=== PATIENT | male | born 1935 | race Two or more races ===

== ENCOUNTER 2017-02-27 07:27 | Outpatient (CLI) | payer OTHER | END 2017-02-27 07:37 | disposition home or self-care (01) | LOC: LAB 07:27 | DX: C61 Malignant neoplasm of prostate (principal) ==

== ENCOUNTER 2017-03-07 07:28 | Outpatient (CLI) | payer OTHER | END 2017-03-07 07:35 | disposition home or self-care (01) | LOC: TOM 07:28 | DX: N39.41 Urge incontinence (principal); C61 Malignant neoplasm of prostate ==

== ENCOUNTER 2017-03-08 09:31 | Outpatient (CLI) | payer OTHER | END 2017-03-08 09:39 | disposition home or self-care (01) | LOC: NUCLEAR 09:31 | DX: N39.41 Urge incontinence (principal); C61 Malignant neoplasm of prostate | CPT/HCPCS: 78306; 78320; A9503 ==

== ENCOUNTER 2017-03-15 07:43 | Outpatient (CLI) | payer OTHER | END 2017-03-15 07:50 | disposition home or self-care (01) | LOC: LAB 07:43 | DX: N18.3 Chronic kidney disease, stage 3 (moderate) (principal); R80.8 Other proteinuria ==

== ENCOUNTER 2017-03-28 08:49 | Outpatient (CLI) | payer OTHER | END 2017-03-28 08:59 | disposition home or self-care (01) | LOC: LAB 08:49 | DX: E11.65 Type 2 diabetes mellitus with hyperglycemia (principal); D68.8 Other specified coagulation defects; D64.89 Other specified anemias; E03.8 Other specified hypothyroidism; E78.2 Mixed hyperlipidemia; N40.1 Benign prostatic hyperplasia with lower urinary tract symptoms ==

== ENCOUNTER 2017-04-04 07:21 | Outpatient (CLI) | payer OTHER | END 2017-04-04 08:10 | disposition home or self-care (01) | LOC: LAB 07:21 | DX: N18.3 Chronic kidney disease, stage 3 (moderate) (principal); E11.21 Type 2 diabetes mellitus with diabetic nephropathy; D63.1 Anemia in chronic kidney disease; N30.00 Acute cystitis without hematuria; E78.4 Other hyperlipidemia; E03.8 Other specified hypothyroidism ==

== ENCOUNTER 2017-04-05 06:40 | Outpatient (CLI) | payer OTHER | END 2017-04-05 07:08 | disposition home or self-care (01) | LOC: LAB 06:40 | DX: N18.3 Chronic kidney disease, stage 3 (moderate) (principal); E11.21 Type 2 diabetes mellitus with diabetic nephropathy; D63.1 Anemia in chronic kidney disease; N30.00 Acute cystitis without hematuria; E78.4 Other hyperlipidemia; E03.8 Other specified hypothyroidism ==

== ENCOUNTER 2017-04-30 07:46 | Outpatient (CLI) | payer OTHER | END 2017-04-30 07:58 | disposition home or self-care (01) | LOC: LAB 07:46 | DX: N18.3 Chronic kidney disease, stage 3 (moderate) (principal); N30.00 Acute cystitis without hematuria; D63.1 Anemia in chronic kidney disease; E11.21 Type 2 diabetes mellitus with diabetic nephropathy; E78.5 Hyperlipidemia, unspecified; E03.8 Other specified hypothyroidism ==

== ENCOUNTER → 2017-05-16 | Outpatient (CLI) | payer OTHER | END | disposition home or self-care (01) | LOC: LAB 07:40 | DX: R80.8 Other proteinuria (principal); N18.2 Chronic kidney disease, stage 2 (mild) ==

== ENCOUNTER → 2017-05-24 | Outpatient (CLI) | payer OTHER | END | disposition home or self-care (01) | LOC: LAB 07:05 | DX: I11.9 Hypertensive heart disease without heart failure (principal); E78.2 Mixed hyperlipidemia; E04.8 Other specified nontoxic goiter ==

== ENCOUNTER 2017-06-27 07:30 | Outpatient (CLI) | payer OTHER | END 2017-06-27 07:42 | disposition home or self-care (01) | LOC: LAB 07:30 | DX: E11.65 Type 2 diabetes mellitus with hyperglycemia (principal); D68.8 Other specified coagulation defects; E78.2 Mixed hyperlipidemia ==

== ENCOUNTER 2017-06-27 09:10 | Outpatient (CLI) | payer OTHER | END 2017-06-27 09:19 | disposition home or self-care (01) | LOC: RAD 09:10 | DX: M50.30 Other cervical disc degeneration, unspecified cervical region (principal); Z98.1 Arthrodesis status ==

== ENCOUNTER 2017-06-29 07:10 | Outpatient (CLI) | payer OTHER | END 2017-06-29 08:27 | disposition home or self-care (01) | LOC: LAB 07:10 | DX: I11.9 Hypertensive heart disease without heart failure (principal) ==

== ENCOUNTER → 2017-07-03 07:52 | Outpatient (CLI) | payer OTHER | END | disposition home or self-care (01) | LOC: LAB 07:52 | DX: N18.3 Chronic kidney disease, stage 3 (moderate) (principal); E11.21 Type 2 diabetes mellitus with diabetic nephropathy; D63.1 Anemia in chronic kidney disease; N30.00 Acute cystitis without hematuria; E78.4 Other hyperlipidemia; E03.8 Other specified hypothyroidism ==

== ENCOUNTER 2017-07-09 06:38 | Outpatient (CLI) | payer OTHER | END 2017-07-09 06:59 | disposition home or self-care (01) | LOC: LAB 06:38 | DX: R80.8 Other proteinuria (principal); N18.1 Chronic kidney disease, stage 1; I12.9 Hypertensive chronic kidney disease with stage 1 through stage 4 chronic kidney disease, or unspecified chronic kidney disease ==

== ENCOUNTER → 2017-07-24 08:16 | Outpatient (CLI) | payer OTHER | END | disposition home or self-care (01) | LOC: LAB 08:16 | DX: E11.65 Type 2 diabetes mellitus with hyperglycemia (principal); E11.21 Type 2 diabetes mellitus with diabetic nephropathy; N39.0 Urinary tract infection, site not specified; E78.2 Mixed hyperlipidemia ==

== ENCOUNTER 2017-07-26 07:15 | Outpatient (CLI) | payer OTHER | END 2017-07-26 07:51 | disposition home or self-care (01) | LOC: LAB 07:15 | DX: D68.8 Other specified coagulation defects (principal); N39.0 Urinary tract infection, site not specified; Z12.11 Encounter for screening for malignant neoplasm of colon; E11.65 Type 2 diabetes mellitus with hyperglycemia; E11.21 Type 2 diabetes mellitus with diabetic nephropathy; E11.649 Type 2 diabetes mellitus with hypoglycemia without coma ==

== ENCOUNTER 2017-08-01 19:04 | Emergency (ER) | payer OTHER ==
[~2017-08-01] VITALS: Ht 160 cm; Wt 68.0 kg
== END 2017-08-01 20:54 | disposition home or self-care (01) ==
LOC: ER 19:04
DX: R63.1 Polydipsia (principal)

== ENCOUNTER 2017-08-16 06:40 | Outpatient (CLI) | payer OTHER | END 2017-08-16 06:47 | disposition home or self-care (01) | LOC: LAB 06:40 | DX: R80.8 Other proteinuria (principal); N18.3 Chronic kidney disease, stage 3 (moderate) ==

== ENCOUNTER 2017-09-21 07:43 | Outpatient (CLI) | payer OTHER | END 2017-09-21 07:49 | disposition home or self-care (01) | LOC: LAB 07:43 | DX: R80.8 Other proteinuria (principal); I12.9 Hypertensive chronic kidney disease with stage 1 through stage 4 chronic kidney disease, or unspecified chronic kidney disease ==

== ENCOUNTER 2017-10-16 07:16 | Outpatient (CLI) | payer OTHER | END 2017-10-16 07:30 | disposition home or self-care (01) | LOC: LAB 07:16 | DX: N18.3 Chronic kidney disease, stage 3 (moderate) (principal); E11.21 Type 2 diabetes mellitus with diabetic nephropathy; D63.1 Anemia in chronic kidney disease; R39.0 Extravasation of urine; E78.4 Other hyperlipidemia; E03.8 Other specified hypothyroidism ==

== ENCOUNTER 2017-10-17 07:28 | Outpatient (CLI) | payer OTHER | END 2017-10-17 09:04 | disposition home or self-care (01) | LOC: LAB 07:28 | DX: N18.3 Chronic kidney disease, stage 3 (moderate) (principal); E11.21 Type 2 diabetes mellitus with diabetic nephropathy; D63.1 Anemia in chronic kidney disease; R39.0 Extravasation of urine; E78.4 Other hyperlipidemia; E03.8 Other specified hypothyroidism ==

== ENCOUNTER 2017-11-06 06:59 | Outpatient (CLI) | payer OTHER | END 2017-11-06 07:09 | disposition home or self-care (01) | LOC: LAB 06:59 | DX: C61 Malignant neoplasm of prostate (principal) ==

== ENCOUNTER 2017-11-19 08:01 | Outpatient (CLI) | payer OTHER | END 2017-11-19 08:10 | disposition home or self-care (01) | LOC: RAD 08:01 | DX: M84.359A Stress fracture, hip, unspecified, initial encounter for fracture (principal) ==

== ENCOUNTER 2017-12-23 07:53 | Outpatient (CLI) | payer OTHER | END 2017-12-23 15:00 | disposition home or self-care (01) | LOC: LAB 07:53 | DX: R80.8 Other proteinuria (principal); N18.3 Chronic kidney disease, stage 3 (moderate); E78.2 Mixed hyperlipidemia ==

== ENCOUNTER 2018-01-29 07:14 | Outpatient (CLI) | payer OTHER | END 2018-01-29 07:20 | disposition home or self-care (01) | LOC: LAB 07:14 | DX: E11.22 Type 2 diabetes mellitus with diabetic chronic kidney disease (principal); N18.3 Chronic kidney disease, stage 3 (moderate); E11.21 Type 2 diabetes mellitus with diabetic nephropathy; D63.1 Anemia in chronic kidney disease; N30.00 Acute cystitis without hematuria; E78.49 Other hyperlipidemia; E03.8 Other specified hypothyroidism ==

== ENCOUNTER 2018-01-31 08:25 | Outpatient (CLI) | payer OTHER | END 2018-01-31 08:35 | disposition home or self-care (01) | LOC: LAB 08:25 | DX: N18.3 Chronic kidney disease, stage 3 (moderate) (principal); E11.21 Type 2 diabetes mellitus with diabetic nephropathy; D63.1 Anemia in chronic kidney disease; N30.00 Acute cystitis without hematuria; E78.49 Other hyperlipidemia; E03.8 Other specified hypothyroidism ==

== ENCOUNTER → 2018-03-04 06:54 | Outpatient (CLI) | payer OTHER | END | disposition home or self-care (01) | LOC: LAB 06:54 | DX: N39.0 Urinary tract infection, site not specified (principal); E11.21 Type 2 diabetes mellitus with diabetic nephropathy; E03.8 Other specified hypothyroidism; E78.2 Mixed hyperlipidemia; D64.89 Other specified anemias ==

== ENCOUNTER 2018-03-25 07:54 | Outpatient (CLI) | payer OTHER | END 2018-03-25 07:59 | disposition home or self-care (01) | LOC: LAB 07:54 | DX: R80.8 Other proteinuria (principal); N18.2 Chronic kidney disease, stage 2 (mild); I12.9 Hypertensive chronic kidney disease with stage 1 through stage 4 chronic kidney disease, or unspecified chronic kidney disease ==

== ENCOUNTER 2018-03-26 06:45 | Outpatient (CLI) | payer OTHER | END 2018-03-26 06:50 | disposition home or self-care (01) | LOC: LAB 06:45 | DX: E78.2 Mixed hyperlipidemia (principal); E11.21 Type 2 diabetes mellitus with diabetic nephropathy; D64.89 Other specified anemias; N39.0 Urinary tract infection, site not specified ==

== ENCOUNTER → 2018-04-15 06:33 | Outpatient (CLI) | payer OTHER | END | disposition home or self-care (01) | LOC: LAB 06:33 | DX: N18.3 Chronic kidney disease, stage 3 (moderate) (principal); E11.21 Type 2 diabetes mellitus with diabetic nephropathy; D63.1 Anemia in chronic kidney disease; N30.00 Acute cystitis without hematuria; E78.49 Other hyperlipidemia; E03.8 Other specified hypothyroidism ==

== ENCOUNTER 2018-04-24 10:18 | Outpatient (CLI) | payer OTHER | END 2018-04-24 10:30 | disposition home or self-care (01) | LOC: RAD 10:18 | DX: M20.61 Acquired deformities of toe(s), unspecified, right foot (principal); M20.62 Acquired deformities of toe(s), unspecified, left foot ==

== ENCOUNTER → 2018-05-15 | Outpatient (CLI) | payer OTHER | END | disposition home or self-care (01) | LOC: RAD 501 08:31 | DX: H25.011 Cortical age-related cataract, right eye (principal); Z98.41 Cataract extraction status, right eye ==

== ENCOUNTER → 2018-06-03 07:01 | Outpatient (CLI) | payer OTHER | END | disposition home or self-care (01) | LOC: LAB 07:01 | DX: E11.65 Type 2 diabetes mellitus with hyperglycemia (principal); D68.8 Other specified coagulation defects; E78.2 Mixed hyperlipidemia; E03.8 Other specified hypothyroidism; D64.89 Other specified anemias; N40.0 Benign prostatic hyperplasia without lower urinary tract symptoms ==

== ENCOUNTER 2018-07-16 07:16 | Outpatient (CLI) | payer OTHER | END 2018-07-16 07:23 | disposition home or self-care (01) | LOC: LAB 07:16 | DX: E03.8 Other specified hypothyroidism (principal); E78.49 Other hyperlipidemia; E11.21 Type 2 diabetes mellitus with diabetic nephropathy; N18.3 Chronic kidney disease, stage 3 (moderate); D63.1 Anemia in chronic kidney disease ==

== ENCOUNTER 2018-07-23 06:39 | Outpatient (CLI) | payer OTHER | END 2018-07-23 06:48 | disposition home or self-care (01) | LOC: LAB 06:39 | DX: E78.2 Mixed hyperlipidemia (principal); K80.80 Other cholelithiasis without obstruction; N18.3 Chronic kidney disease, stage 3 (moderate) ==

== ENCOUNTER 2018-07-28 10:04 | Outpatient (CLI) | payer OTHER | END 2018-07-28 10:10 | disposition home or self-care (01) | LOC: RAD 10:04 | DX: M16.0 Bilateral primary osteoarthritis of hip (principal) ==

== ENCOUNTER → 2018-08-04 08:39 | Outpatient (CLI) | payer OTHER | END | disposition home or self-care (01) | LOC: LAB 08:39 | DX: R10.84 Generalized abdominal pain (principal) ==

== ENCOUNTER 2018-08-04 09:13 | Outpatient (CLI) | payer OTHER | END 2018-08-04 09:19 | disposition home or self-care (01) | LOC: SONOGRAMA 09:13 | DX: R10.84 Generalized abdominal pain (principal) ==

== ENCOUNTER → 2018-08-09 07:19 | Outpatient (CLI) | payer OTHER | END | disposition home or self-care (01) | LOC: LAB 07:19 | DX: C61 Malignant neoplasm of prostate (principal) ==

== ENCOUNTER 2018-09-29 09:36 | Emergency (ER) | payer OTHER ==
[~2018-09-29] VITALS: Ht 162.6 cm; Wt 68.0 kg
[2018-09-29] MEDS ORDERED: TYLENOL ARTHRI650 MG PO (10:21)
== END 2018-09-29 10:41 | disposition home or self-care (01) ==
LOC: ER 09:36
DX: M77.32 Calcaneal spur, left foot (principal)

== ENCOUNTER 2018-09-30 06:24 | Emergency (ER) | payer OTHER ==
[~2018-09-30] VITALS: Ht 160 cm; Wt 69.4 kg
[~2018-09-30 06:24] MED LIST: TYLENOL ARTHRI650 MG PO
== END 2018-09-30 08:59 | disposition home or self-care (01) ==
LOC: ER 06:24
DX: M77.32 Calcaneal spur, left foot (principal)

== ENCOUNTER 2018-10-02 08:38 | Outpatient (CLI) | payer OTHER | END 2018-10-02 08:47 | disposition home or self-care (01) | LOC: LAB 08:38 | DX: R53.83 Other fatigue (principal); M05.9 Rheumatoid arthritis with rheumatoid factor, unspecified ==

== ENCOUNTER 2018-10-07 07:00 | Outpatient (CLI) | payer OTHER | END 2018-10-07 07:07 | disposition home or self-care (01) | LOC: LAB 07:00 | DX: E78.2 Mixed hyperlipidemia (principal); E11.65 Type 2 diabetes mellitus with hyperglycemia; D64.89 Other specified anemias; N39.0 Urinary tract infection, site not specified; D68.8 Other specified coagulation defects; E03.8 Other specified hypothyroidism ==

== ENCOUNTER 2018-10-07 14:03 | Outpatient (CLI) | payer OTHER | END 2018-10-07 14:07 | disposition home or self-care (01) | LOC: MRI 14:03 | DX: M76.822 Posterior tibial tendinitis, left leg (principal) | CPT/HCPCS: 73718 ==

== ENCOUNTER 2018-11-18 06:24 | Outpatient (CLI) | payer OTHER | END 2018-11-18 06:37 | disposition home or self-care (01) | LOC: LAB 06:24 | DX: N18.3 Chronic kidney disease, stage 3 (moderate) (principal); I12.9 Hypertensive chronic kidney disease with stage 1 through stage 4 chronic kidney disease, or unspecified chronic kidney disease; R80.8 Other proteinuria ==

== ENCOUNTER 2018-11-24 06:49 | Outpatient (CLI) | payer OTHER | END 2018-11-24 15:00 | disposition home or self-care (01) | LOC: LAB 06:49 | DX: E11.21 Type 2 diabetes mellitus with diabetic nephropathy (principal); D63.1 Anemia in chronic kidney disease; N18.3 Chronic kidney disease, stage 3 (moderate); N30.00 Acute cystitis without hematuria; E78.4 Other hyperlipidemia; E03.8 Other specified hypothyroidism ==

== ENCOUNTER 2018-11-25 06:38 | Outpatient (CLI) | payer OTHER | END 2018-11-25 13:41 | disposition home or self-care (01) | LOC: LAB 06:38 | DX: N18.3 Chronic kidney disease, stage 3 (moderate) (principal); E11.21 Type 2 diabetes mellitus with diabetic nephropathy; D63.1 Anemia in chronic kidney disease; N30.00 Acute cystitis without hematuria; E03.8 Other specified hypothyroidism; E78.49 Other hyperlipidemia ==

== ENCOUNTER 2019-03-03 06:40 | Outpatient (CLI) | payer OTHER | END 2019-03-03 07:10 | disposition home or self-care (01) | LOC: LAB 06:40 | DX: E78.2 Mixed hyperlipidemia (principal); N40.0 Benign prostatic hyperplasia without lower urinary tract symptoms; E11.65 Type 2 diabetes mellitus with hyperglycemia; D64.89 Other specified anemias ==

== ENCOUNTER 2019-03-06 06:48 | Outpatient (CLI) | payer OTHER | END 2019-03-06 07:00 | disposition home or self-care (01) | LOC: LAB 06:48 | DX: N18.3 Chronic kidney disease, stage 3 (moderate) (principal); E11.21 Type 2 diabetes mellitus with diabetic nephropathy; D63.1 Anemia in chronic kidney disease; N30.00 Acute cystitis without hematuria; E78.49 Other hyperlipidemia; E03.8 Other specified hypothyroidism ==

== ENCOUNTER 2019-04-01 06:31 | Outpatient (CLI) | payer OTHER | END 2019-04-01 06:42 | disposition home or self-care (01) | LOC: LAB 06:31 | DX: G45.8 Other transient cerebral ischemic attacks and related syndromes (principal); I73.89 Other specified peripheral vascular diseases; I11.9 Hypertensive heart disease without heart failure ==

== ENCOUNTER 2019-04-03 06:17 | Outpatient (CLI) | payer OTHER | END 2019-04-03 06:30 | disposition home or self-care (01) | LOC: LAB 06:17 | DX: G45.8 Other transient cerebral ischemic attacks and related syndromes (principal); N03.2 Chronic nephritic syndrome with diffuse membranous glomerulonephritis; I73.89 Other specified peripheral vascular diseases; I11.9 Hypertensive heart disease without heart failure ==

== ENCOUNTER → 2019-04-22 06:13 | Outpatient (CLI) | payer OTHER | END | disposition home or self-care (01) | LOC: LAB 06:13 | DX: N18.3 Chronic kidney disease, stage 3 (moderate) (principal); I12.9 Hypertensive chronic kidney disease with stage 1 through stage 4 chronic kidney disease, or unspecified chronic kidney disease; K80.80 Other cholelithiasis without obstruction ==

== ENCOUNTER 2019-05-05 11:18 | Emergency (ER) | payer OTHER ==
[~2019-05-05] VITALS: Ht 162.6 cm; Wt 69.9 kg
== END 2019-05-05 12:14 | disposition home or self-care (01) ==
LOC: ER 11:18
DX: J98.8 Other specified respiratory disorders (principal)

== ENCOUNTER 2019-05-28 06:10 | Outpatient (CLI) | payer OTHER | END 2019-05-28 06:19 | disposition home or self-care (01) | LOC: LAB 06:10 | DX: E78.2 Mixed hyperlipidemia (principal); D64.89 Other specified anemias; E11.21 Type 2 diabetes mellitus with diabetic nephropathy; N39.0 Urinary tract infection, site not specified; E11.65 Type 2 diabetes mellitus with hyperglycemia; Z12.11 Encounter for screening for malignant neoplasm of colon ==

== ENCOUNTER 2019-06-25 06:10 | Outpatient (CLI) | payer OTHER | END 2019-06-25 06:15 | disposition home or self-care (01) | LOC: LAB 06:10 | DX: N11.8 Other chronic tubulo-interstitial nephritis (principal); E11.21 Type 2 diabetes mellitus with diabetic nephropathy; D63.1 Anemia in chronic kidney disease; N30.00 Acute cystitis without hematuria; E03.8 Other specified hypothyroidism ==

== ENCOUNTER 2019-08-25 06:18 | Outpatient (CLI) | payer OTHER | END 2019-08-25 06:22 | disposition home or self-care (01) | LOC: LAB 06:18 | DX: R80.8 Other proteinuria (principal); N18.3 Chronic kidney disease, stage 3 (moderate); I12.9 Hypertensive chronic kidney disease with stage 1 through stage 4 chronic kidney disease, or unspecified chronic kidney disease ==

== ENCOUNTER 2019-11-17 06:27 | Outpatient (CLI) | payer OTHER | END 2019-11-17 06:31 | disposition home or self-care (01) | LOC: LAB 06:27 | PROVIDERS: ATTEND Specialist/Technologist, Other Nephrology | DX: E11.21 Type 2 diabetes mellitus with diabetic nephropathy (principal); D63.1 Anemia in chronic kidney disease; N30.00 Acute cystitis without hematuria; E03.8 Other specified hypothyroidism ==

== ENCOUNTER 2019-11-19 06:28 | Outpatient (CLI) | payer OTHER | END 2019-11-19 15:00 | disposition home or self-care (01) | LOC: LAB 06:28 | PROVIDERS: ATTEND Specialist/Technologist, Other Nephrology | DX: E11.21 Type 2 diabetes mellitus with diabetic nephropathy (principal); D63.1 Anemia in chronic kidney disease; N30.00 Acute cystitis without hematuria; E03.8 Other specified hypothyroidism ==

== ENCOUNTER → 2019-12-14 | Outpatient (CLI) | payer OTHER | END | disposition home or self-care (01) | LOC: TOM 12-01 09:14 → MRI 11:00 | PROVIDERS: ATTEND Neurological Surgery | DX: M48.02 Spinal stenosis, cervical region (principal); G95.89 Other specified diseases of spinal cord; M43.22 Fusion of spine, cervical region; M54.2 Cervicalgia | CPT/HCPCS: 72141 ==

== ENCOUNTER → 2020-01-08 06:15 | Outpatient (CLI) | payer OTHER | END | disposition home or self-care (01) | LOC: LAB 06:15 | DX: R80.8 Other proteinuria (principal); N18.30 Chronic kidney disease, stage 3 unspecified; I12.9 Hypertensive chronic kidney disease with stage 1 through stage 4 chronic kidney disease, or unspecified chronic kidney disease ==

== ENCOUNTER 2020-04-04 06:10 | Outpatient (CLI) | payer OTHER | END 2020-04-04 06:11 | disposition home or self-care (01) | LOC: LAB 06:10 | PROVIDERS: ATTEND Specialist/Technologist, Other Nephrology | DX: E03.8 Other specified hypothyroidism (principal); N30.00 Acute cystitis without hematuria; E11.21 Type 2 diabetes mellitus with diabetic nephropathy; D63.1 Anemia in chronic kidney disease ==

== ENCOUNTER → 2020-06-02 12:05 | Outpatient (CLI) | payer OTHER | END | disposition home or self-care (01) | LOC: LAB 12:05 | PROVIDERS: ATTEND Specialist | DX: E11.65 Type 2 diabetes mellitus with hyperglycemia (principal); D64.9 Anemia, unspecified; E78.2 Mixed hyperlipidemia; N40.1 Benign prostatic hyperplasia with lower urinary tract symptoms; E11.21 Type 2 diabetes mellitus with diabetic nephropathy; Z12.11 Encounter for screening for malignant neoplasm of colon; N39.0 Urinary tract infection, site not specified; E03.9 Hypothyroidism, unspecified ==

== ENCOUNTER 2020-06-02 13:26 | Outpatient (CLI) | payer OTHER | END 2020-06-02 13:29 | disposition home or self-care (01) | LOC: RAD 13:26 | PROVIDERS: ATTEND Specialist | DX: R07.89 Other chest pain (principal); I10 Essential (primary) hypertension; J45.998 Other asthma ==

== ENCOUNTER 2020-06-03 07:08 | Outpatient (CLI) | payer OTHER | END 2020-06-03 07:11 | disposition home or self-care (01) | LOC: LAB 07:08 | PROVIDERS: ATTEND Specialist | DX: N39.0 Urinary tract infection, site not specified (principal); D64.9 Anemia, unspecified; E78.2 Mixed hyperlipidemia; N42.9 Disorder of prostate, unspecified; E11.21 Type 2 diabetes mellitus with diabetic nephropathy; Z12.11 Encounter for screening for malignant neoplasm of colon ==

== ENCOUNTER → 2020-06-22 06:08 | Outpatient (CLI) | payer OTHER | END | disposition home or self-care (01) | LOC: LAB 06:08 → EDBD 06:08 | PROVIDERS: ATTEND Internal Medicine Cardiovascular Disease | DX: I11.9 Hypertensive heart disease without heart failure (principal); E78.1 Pure hyperglyceridemia ==

== ENCOUNTER 2020-06-28 07:26 | Outpatient (CLI) | payer OTHER | END 2020-06-28 07:28 | disposition home or self-care (01) | LOC: NUCLEAR 07:26 | PROVIDERS: ATTEND Internal Medicine Cardiovascular Disease | DX: R07.89 Other chest pain (principal) | CPT/HCPCS: 78452; 93017; A9500; J0153 ==

== ENCOUNTER 2020-06-29 12:52 | Outpatient (CLI) | payer OTHER | END 2020-06-29 13:00 | disposition home or self-care (01) | LOC: RAD 12:52 | PROVIDERS: ATTEND Internal Medicine Cardiovascular Disease | DX: M25.511 Pain in right shoulder (principal); M25.512 Pain in left shoulder ==

== ENCOUNTER → 2020-07-11 06:17 | Outpatient (CLI) | payer OTHER | END | disposition home or self-care (01) | LOC: LAB 06:17 | PROVIDERS: ATTEND Specialist/Technologist, Other Nephrology | DX: N11.8 Other chronic tubulo-interstitial nephritis (principal); E11.21 Type 2 diabetes mellitus with diabetic nephropathy; D63.1 Anemia in chronic kidney disease; N30.00 Acute cystitis without hematuria; E72.89 Other specified disorders of amino-acid metabolism; E03.8 Other specified hypothyroidism ==

== ENCOUNTER 2020-07-18 06:25 | Outpatient (CLI) | payer OTHER | END 2020-07-18 06:31 | disposition home or self-care (01) | LOC: LAB 06:25 | DX: R80.8 Other proteinuria (principal); N18.30 Chronic kidney disease, stage 3 unspecified; I12.9 Hypertensive chronic kidney disease with stage 1 through stage 4 chronic kidney disease, or unspecified chronic kidney disease ==

== ENCOUNTER → 2020-10-05 07:49 | Outpatient (CLI) | payer OTHER | END | disposition home or self-care (01) | LOC: EDBD 07:49 → LAB 07:49 → RAD 07:49 | PROVIDERS: ATTEND Internal Medicine Cardiovascular Disease | DX: E11.65 Type 2 diabetes mellitus with hyperglycemia (principal); D68.8 Other specified coagulation defects; C61 Malignant neoplasm of prostate; E21.0 Primary hyperparathyroidism; E78.2 Mixed hyperlipidemia; E03.1 Congenital hypothyroidism without goiter; N05.1 Unspecified nephritic syndrome with focal and segmental glomerular lesions; E11.21 Type 2 diabetes mellitus with diabetic nephropathy; I11.9 Hypertensive heart disease without heart failure; E78.1 Pure hyperglyceridemia; M25.511 Pain in right shoulder ==

== ENCOUNTER 2020-10-18 08:15 | Outpatient (CLI) | payer OTHER | END 2020-10-18 08:16 | disposition home or self-care (01) | LOC: LAB 08:15 | DX: N18.32 Chronic kidney disease, stage 3b (principal); I12.9 Hypertensive chronic kidney disease with stage 1 through stage 4 chronic kidney disease, or unspecified chronic kidney disease; R80.8 Other proteinuria; R31.29 Other microscopic hematuria ==

== ENCOUNTER 2020-11-13 05:59 | Emergency (ER) | payer OTHER ==
[~2020-11-13] VITALS: Ht 162.6 cm; Wt 68.0 kg
[2020-12-01] MEDS ORDERED: ADULT LOW DOSE81 M1 PO (09:50)
[2020-12-01] MEDS ORDERED: PLAVIX75 MG PO (09:50)
== END 2020-11-13 09:35 | disposition home or self-care (01) ==
LOC: ER 05:59
DX: M25.512 Pain in left shoulder (principal); M25.552 Pain in left hip

== ENCOUNTER 2020-11-21 10:30 | Outpatient (CLI) | payer OTHER ==
[2020-12-01] MEDS ORDERED: ADULT LOW DOSE81 M1 PO (09:50)
[2020-12-01] MEDS ORDERED: PLAVIX75 MG PO (09:50)
== END 2020-11-21 10:35 | disposition home or self-care (01) ==
LOC: MRI 10:30
PROVIDERS: ATTEND Orthopaedic Surgery
DX: M75.52 Bursitis of left shoulder (principal); M25.512 Pain in left shoulder; M75.122 Complete rotator cuff tear or rupture of left shoulder, not specified as traumatic
CPT/HCPCS: 73221

== ENCOUNTER 2020-11-30 10:02 | Outpatient (CLI) | payer OTHER ==
[2020-12-01] MEDS ORDERED: ADULT LOW DOSE81 M1 PO (09:50)
[2020-12-01] MEDS ORDERED: PLAVIX75 MG PO (09:50)
== END 2020-11-30 13:39 | disposition home or self-care (01) ==
LOC: LAB 10:02
PROVIDERS: ATTEND Specialist/Technologist, Other Nephrology
DX: N30.00 Acute cystitis without hematuria (principal); I12.9 Hypertensive chronic kidney disease with stage 1 through stage 4 chronic kidney disease, or unspecified chronic kidney disease; E78.49 Other hyperlipidemia; E03.8 Other specified hypothyroidism; D63.1 Anemia in chronic kidney disease; E11.21 Type 2 diabetes mellitus with diabetic nephropathy

== ENCOUNTER 2020-12-06 07:09 | Day surgery (SDC) | payer OTHER ==
[~2020-12-06 07:09] MED LIST changes: +ADULT LOW DOSE81 M1 PO; +PLAVIX75 MG PO
[2020-12-06] MEDS ORDERED: NABUMETONE500 MG PO (12:24)
[2020-12-06] MEDS ORDERED: PERCOCET 5-3251 EACH PO (12:24)
== END 2020-12-06 18:26 | disposition home or self-care (01) ==
LOC: CIR.AMB 07:09
PROVIDERS: ATTEND Orthopaedic Surgery
DX: M75.102 Unspecified rotator cuff tear or rupture of left shoulder, not specified as traumatic (principal); M75.22 Bicipital tendinitis, left shoulder; M66.822 Spontaneous rupture of other tendons, left upper arm; M19.212 Secondary osteoarthritis, left shoulder; Z20.822 Contact with and (suspected) exposure to COVID-19

== ENCOUNTER 2020-12-28 08:51 | Outpatient (CLI) | payer OTHER ==
[~2020-12-28 08:51] MED LIST changes: +NABUMETONE500 MG PO; +PERCOCET 5-3251 EACH PO
== END 2020-12-28 09:00 | disposition home or self-care (01) ==
LOC: RAD 08:51
PROVIDERS: ATTEND Orthopaedic Surgery
DX: S40.012A Contusion of left shoulder, initial encounter (principal); M25.552 Pain in left hip; S70.02XA Contusion of left hip, initial encounter

== ENCOUNTER → 2021-01-06 | Outpatient (CLI) | payer OTHER | END | disposition home or self-care (01) | LOC: RX STUDY 08:12 | PROVIDERS: ATTEND Otolaryngology Otology & Neurotology | DX: K22.89 Other specified disease of esophagus (principal); R13.14 Dysphagia, pharyngoesophageal phase ==

== ENCOUNTER 2021-01-17 08:13 | Outpatient (CLI) | payer OTHER | END 2021-01-17 08:15 | disposition home or self-care (01) | LOC: RAD 08:13 | PROVIDERS: ATTEND Internal Medicine Cardiovascular Disease | DX: M79.672 Pain in left foot (principal) ==

== ENCOUNTER 2021-01-23 07:53 | Outpatient (CLI) | payer OTHER | END 2021-01-23 08:03 | disposition home or self-care (01) | LOC: NUCLEAR 07:53 | PROVIDERS: ATTEND Internal Medicine Cardiovascular Disease | DX: I73.9 Peripheral vascular disease, unspecified (principal) ==

== ENCOUNTER → 2021-01-26 | Emergency (ER) | payer OTHER ==
[~2021-01-26] VITALS: Ht 162.6 cm; Wt 63.5 kg
== END | disposition home or self-care (01) ==
LOC: ER 10:40
DX: J06.9 Acute upper respiratory infection, unspecified (principal)

== ENCOUNTER 2021-03-06 11:57 | Outpatient (CLI) | payer OTHER | END 2021-03-06 12:01 | disposition home or self-care (01) | LOC: RAD 11:57 | PROVIDERS: ATTEND Physical Medicine & Rehabilitation | DX: M54.59 Other low back pain (principal) ==

== ENCOUNTER 2021-04-05 12:26 | Outpatient (CLI) | payer OTHER ==
[~2021-04-05 12:26] MED LIST changes: +DICLOFENAC POTA50 MG PO
== END 2021-04-05 12:27 | disposition home or self-care (01) ==
LOC: LAB 12:26
PROVIDERS: ATTEND Specialist
DX: E03.9 Hypothyroidism, unspecified (principal); E11.21 Type 2 diabetes mellitus with diabetic nephropathy; N39.9 Disorder of urinary system, unspecified; N40.1 Benign prostatic hyperplasia with lower urinary tract symptoms; D40.0 Neoplasm of uncertain behavior of prostate; E78.2 Mixed hyperlipidemia; E11.65 Type 2 diabetes mellitus with hyperglycemia; D64.9 Anemia, unspecified; N25.81 Secondary hyperparathyroidism of renal origin; N39.0 Urinary tract infection, site not specified

== ENCOUNTER 2021-04-27 06:13 | Outpatient (CLI) | payer OTHER ==
[2021-05-03] MEDS ORDERED: PLAVIX75 MG PO (13:14)
[2021-05-03] MEDS ORDERED: ADULT LOW DOSE81 M1 PO (13:14)
[2021-05-03] MEDS ORDERED: LIPITOR20 MG PO (13:15)
== END 2021-04-27 06:14 | disposition home or self-care (01) ==
LOC: LAB 06:13
PROVIDERS: ATTEND Orthopaedic Surgery
DX: D64.9 Anemia, unspecified (principal); A49.02 Methicillin resistant Staphylococcus aureus infection, unspecified site; E88.9 Metabolic disorder, unspecified; D68.8 Other specified coagulation defects; N39.0 Urinary tract infection, site not specified; I10 Essential (primary) hypertension; Z76.89 Persons encountering health services in other specified circumstances

== ENCOUNTER 2021-05-09 07:56 | Day surgery (SDC) | payer OTHER ==
[~2021-05-09 07:56] MED LIST changes: +LIPITOR20 MG PO
== END 2021-05-09 19:35 | disposition home or self-care (01) ==
LOC: CIR.AMB 07:56
PROVIDERS: ATTEND Orthopaedic Surgery
DX: M75.122 Complete rotator cuff tear or rupture of left shoulder, not specified as traumatic (principal); M19.012 Primary osteoarthritis, left shoulder; M75.22 Bicipital tendinitis, left shoulder; M25.812 Other specified joint disorders, left shoulder; I25.10 Atherosclerotic heart disease of native coronary artery without angina pectoris; Z95.5 Presence of coronary angioplasty implant and graft; I10 Essential (primary) hypertension; M19.90 Unspecified osteoarthritis, unspecified site; Z79.82 Long term (current) use of aspirin; Z79.02 Long term (current) use of antithrombotics/antiplatelets; Z20.822 Contact with and (suspected) exposure to COVID-19

== ENCOUNTER 2021-05-19 10:50 | Emergency (ER) | payer OTHER ==
[~2021-05-19] VITALS: Ht 162.6 cm; Wt 63.5 kg
[2021-05-19] MEDS ORDERED: METOPROLOL SUCC50 MG (11:14)
[2021-05-19] MEDS ORDERED: PRILOSEC OTC20 MG (11:15)
[2021-05-19] MEDS ORDERED: NITROGLYCERIN0.4 MG (11:15)
[2021-05-19] MEDS ORDERED: CELECOXIB200 MG (11:15)
== END 2021-05-19 19:51 | disposition home or self-care (01) ==
LOC: ER 10:50
DX: R10.13 Epigastric pain (principal); I10 Essential (primary) hypertension; Z20.822 Contact with and (suspected) exposure to COVID-19

== ENCOUNTER 2021-05-23 04:37 | Emergency (ER) | payer OTHER ==
[~2021-05-23] VITALS: Ht 162.6 cm; Wt 63.5 kg
[~2021-05-23 04:37] MED LIST changes: +CELECOXIB200 MG; +METOPROLOL SUCC50 MG; +NITROGLYCERIN0.4 MG; +PRILOSEC OTC20 MG
== END 2021-05-23 10:24 | disposition home or self-care (01) ==
LOC: ER 04:37
DX: R10.9 Unspecified abdominal pain (principal); K59.03 Drug induced constipation; M54.9 Dorsalgia, unspecified

== ENCOUNTER 2021-10-21 04:37 | Emergency (ER) | payer OTHER ==
[~2021-10-21] VITALS: Ht 165.1 cm; Wt 68.0 kg
== END 2021-10-21 13:56 | disposition home or self-care (01) ==
LOC: ER 04:37
DX: K59.00 Constipation, unspecified (principal); R10.84 Generalized abdominal pain; K57.90 Diverticulosis of intestine, part unspecified, without perforation or abscess without bleeding

== ENCOUNTER 2021-10-25 06:23 | Outpatient (CLI) | payer OTHER | END 2021-10-25 06:24 | disposition home or self-care (01) | LOC: LAB 06:23 | PROVIDERS: ATTEND Internal Medicine Cardiovascular Disease | DX: I11.9 Hypertensive heart disease without heart failure (principal); C11.9 Malignant neoplasm of nasopharynx, unspecified; I25.9 Chronic ischemic heart disease, unspecified; M45.9 Ankylosing spondylitis of unspecified sites in spine; I73.9 Peripheral vascular disease, unspecified; N03.2 Chronic nephritic syndrome with diffuse membranous glomerulonephritis ==

== ENCOUNTER 2021-11-04 09:10 | Emergency (ER) | payer OTHER ==
[~2021-11-04] VITALS: Ht 162.6 cm; Wt 63.5 kg
== END 2021-11-04 11:24 | disposition home or self-care (01) ==
LOC: ER 09:10
DX: J04.0 Acute laryngitis (principal)

== ENCOUNTER 2021-11-06 02:54 | Emergency (ER) | payer OTHER ==
[~2021-11-06] VITALS: Ht 162.6 cm; Wt 59.0 kg
== END 2021-11-06 09:22 | disposition left against medical advice (07) ==
LOC: ER 02:54
DX: R05.9 Cough, unspecified (principal); Z20.822 Contact with and (suspected) exposure to COVID-19; I10 Essential (primary) hypertension

== ENCOUNTER 2021-11-07 11:19 | Emergency (ER) | payer OTHER ==
[~2021-11-07] VITALS: Ht 162.6 cm; Wt 63.5 kg
== END 2021-11-07 16:36 | disposition home or self-care (01) ==
LOC: ER 11:19
DX: M54.2 Cervicalgia (principal); Z98.1 Arthrodesis status

== ENCOUNTER 2021-11-08 08:21 | Emergency (ER) | payer OTHER ==
[~2021-11-08] VITALS: Ht 162.6 cm; Wt 63.5 kg
== END 2021-11-08 14:21 | disposition home or self-care (01) ==
LOC: ER 08:21
DX: S49.91XA Unspecified injury of right shoulder and upper arm, initial encounter (principal); X58.XXXA Exposure to other specified factors, initial encounter; Y93.9 Activity, unspecified; Y92.9 Unspecified place or not applicable

== ENCOUNTER 2021-11-10 04:24 | Emergency (ER) | payer OTHER ==
[~2021-11-10] VITALS: Ht 162.6 cm; Wt 63.5 kg
== END 2021-11-10 12:06 | disposition home or self-care (01) ==
LOC: ER 04:24
DX: M47.892 Other spondylosis, cervical region (principal); H92.02 Otalgia, left ear; I10 Essential (primary) hypertension

== ENCOUNTER 2021-11-21 10:55 | Outpatient (CLI) | payer OTHER | END 2021-11-21 15:37 | disposition home or self-care (01) | LOC: LAB 10:55 | PROVIDERS: ATTEND Specialist | DX: N39.9 Disorder of urinary system, unspecified (principal); E03.8 Other specified hypothyroidism; Z13.220 Encounter for screening for lipoid disorders; E11.69 Type 2 diabetes mellitus with other specified complication; E11.21 Type 2 diabetes mellitus with diabetic nephropathy; Z12.5 Encounter for screening for malignant neoplasm of prostate; R19.5 Other fecal abnormalities; D64.89 Other specified anemias ==

== ENCOUNTER 2021-11-24 12:14 | Emergency (ER) | payer OTHER ==
[~2021-11-24] VITALS: Ht 167.6 cm; Wt 54.4 kg
== END 2021-11-24 14:50 | disposition left against medical advice (07) ==
LOC: ER 12:14
DX: Z53.21 Procedure and treatment not carried out due to patient leaving prior to being seen by health care provider (principal)

== ENCOUNTER 2021-11-25 06:22 | Emergency (ER) | payer OTHER ==
[~2021-11-25] VITALS: Ht 162.6 cm; Wt 63.5 kg
== END 2021-11-25 09:41 | disposition left against medical advice (07) ==
LOC: ER 06:22
DX: S79.911A Unspecified injury of right hip, initial encounter (principal); W19.XXXA Unspecified fall, initial encounter; Y93.9 Activity, unspecified; Y92.9 Unspecified place or not applicable

== ENCOUNTER 2021-11-26 05:10 | Emergency (ER) | payer OTHER ==
[~2021-11-26] VITALS: Ht 162.6 cm; Wt 63.5 kg
== END 2021-11-26 06:14 | disposition home or self-care (01) ==
LOC: ER 05:10
DX: M25.551 Pain in right hip (principal); I10 Essential (primary) hypertension

== ENCOUNTER 2021-11-28 11:03 | Emergency (ER) | payer OTHER ==
[~2021-11-28] VITALS: Ht 162.6 cm; Wt 63.5 kg
== END 2021-11-28 13:15 | disposition home or self-care (01) ==
LOC: ER 11:03
DX: M79.604 Pain in right leg (principal)

== ENCOUNTER 2021-12-06 06:20 | Outpatient (CLI) | payer OTHER | END 2021-12-06 06:21 | disposition home or self-care (01) | LOC: LAB 06:20 | PROVIDERS: ATTEND Specialist | DX: N39.9 Disorder of urinary system, unspecified (principal); E11.69 Type 2 diabetes mellitus with other specified complication; E03.8 Other specified hypothyroidism; Z13.220 Encounter for screening for lipoid disorders; D64.89 Other specified anemias; Z12.5 Encounter for screening for malignant neoplasm of prostate ==

== ENCOUNTER 2022-01-10 11:56 | Outpatient (CLI) | payer OTHER | END 2022-01-10 11:57 | disposition home or self-care (01) | LOC: LAB 11:56 | PROVIDERS: ATTEND Specialist | DX: M00.80 Arthritis due to other bacteria, unspecified joint (principal); E03.8 Other specified hypothyroidism; N39.9 Disorder of urinary system, unspecified; E11.21 Type 2 diabetes mellitus with diabetic nephropathy; Z13.220 Encounter for screening for lipoid disorders; E11.69 Type 2 diabetes mellitus with other specified complication; Z12.5 Encounter for screening for malignant neoplasm of prostate; D64.89 Other specified anemias; I70.0 Atherosclerosis of aorta; Z98.61 Coronary angioplasty status ==

== ENCOUNTER 2022-02-15 07:54 | Outpatient (CLI) | payer OTHER | END 2022-02-15 08:03 | disposition home or self-care (01) | LOC: LAB 07:54 | PROVIDERS: ATTEND Internal Medicine Nephrology | DX: N18.2 Chronic kidney disease, stage 2 (mild) (principal); R80.9 Proteinuria, unspecified ==

== ENCOUNTER 2022-04-04 10:09 | Emergency (ER) | payer OTHER ==
[~2022-04-04] VITALS: Ht 162.6 cm; Wt 63.5 kg
== END 2022-04-04 13:09 | disposition home or self-care (01) ==
LOC: ER 10:09
DX: M54.89 Other dorsalgia (principal); I10 Essential (primary) hypertension

== ENCOUNTER 2022-04-07 11:32 | Emergency (ER) | payer OTHER ==
[~2022-04-07] VITALS: Ht 157.5 cm; Wt 63.5 kg
== END 2022-04-07 13:43 | disposition left against medical advice (07) ==
LOC: ER 11:32
DX: Z53.21 Procedure and treatment not carried out due to patient leaving prior to being seen by health care provider (principal)

== ENCOUNTER 2022-04-20 08:42 | Emergency (ER) | payer OTHER ==
[~2022-04-20] VITALS: Ht 160 cm; Wt 76.2 kg
== END 2022-04-20 12:24 | disposition home or self-care (01) ==
LOC: ER 08:42
DX: S09.90XA Unspecified injury of head, initial encounter (principal); W19.XXXA Unspecified fall, initial encounter; Y93.F1 Activity, caregiving, bathing; Y92.012 Bathroom of single-family (private) house as the place of occurrence of the external cause

== ENCOUNTER 2022-04-24 08:00 | Outpatient (CLI) | payer OTHER | END 2022-04-24 09:00 | disposition home or self-care (01) | LOC: LAB 08:00 | PROVIDERS: ATTEND Specialist | DX: E03.8 Other specified hypothyroidism (principal); E11.21 Type 2 diabetes mellitus with diabetic nephropathy; Z12.5 Encounter for screening for malignant neoplasm of prostate; D64.89 Other specified anemias; E11.69 Type 2 diabetes mellitus with other specified complication; Z13.220 Encounter for screening for lipoid disorders; N39.9 Disorder of urinary system, unspecified; J45.998 Other asthma ==

== ENCOUNTER 2022-04-25 14:17 | Inpatient (IN) | payer OTHER ==
[~2022-04-25] VITALS: Ht 152.4 cm; Wt 63.5 kg
--- NOTE | 2022-04-25 14:29 | NUR ---
PTE ALERTA Y ORIENTADO POR JANENE ESFERAS CON BUEN PATRON RESPIRATORIO. REFIERE QUE DESDE ESTA MANANA ALBERTO TENIDO UN TOTAL DE 5 EP DE DIARREA
--- NOTE | 2022-04-25 15:28 | NUR ---
SE ORIENTA PTE SOBRE TX A SEGUIR, EL CUAL REFIERE ENTENDER. SE COLECTAN MUESTRAS Y SE CANALIZA PTE UTILIZANDO MEDIDAS ASEPTICAS Y SE ADM. MEDICAMENTOS ARIES ORDEN MEDICA BAJO MEDIDAS ASEPTICAS
--- NOTE | 2022-04-26 00:12 | NUR ---
SE RECIBE PACIENTE ALERTA, ORIENTADO SOLO EN PERSONA. SE OBSERVA PACIENTE CON VENOPUNCION EN MANO IZQUIERDA CON ANGIO #20 PATENTE NORY DE EDEMA Y ERITEMA. SE MANTIENE PACIENTE CON RUBIA BAJA Y BARANDAS ELEVADA POR PRECAUCION. SE MANTIENE BAJO OBSERVACION POR CAMBIOS SIGNIFICATIVOS.
--- NOTE | 2022-04-26 02:18 | NUR ---
1:00AM PTE DESORIENTADO INDICA QUERER IRSE PARA CHOWDHURY HOGAR, SE ORIENTA SOBRE CHOWDHURY STATUS (PENDIENTE EVALUACION DE MEDICINA INTERNA), REFIERE ENTENDER. SE MANTIENE BAJO OBSERVACION, EN RUBIA NIVEL MAS BAJO, CON BARANDAS ELEVADAS POR PRECAUCION. 1:37AM PTE NUE[place]AMENT[place] DESORIENTADO REFIERE QUERER IRSE, SE INTENTA EXPLICAR Y ORIENTAR AL MISMO SOBRE CHOWDHURY CONDICION Y PENDIENTE A EVALUACION DE MEDICINA INTERNA, EL MISMO SE MUESTRA AGRESIVO DE FORMA VERBAL Y FISICA HACIA EL PERSONAL DE ENFERMERIA Y POCO COOPERADOR. PTE ORINADO, SE PROVEE HIGIENE, CAMBIO DE SABANAS Y SE RE UBICA EL MISMO CERCA DEL COUNTER DE ENFERMERIA, AUN ASI PTE CONTINUA AGRESIVO Y SE REMUEVE IV. SE NOTIFICA A DR SWIFT, SE ADMINISTRA TX Y SE RESTRINGE EL MISMO EN EXTREMIDADES, AREAS LIBRES DE EDEMA O ERITEMA. SE CANALIZA PTE [place]AM[place] ANGIO #20 EN MANO RT, AREA NORY DE EDEMA O ERITEMA. SE MANTIENE BAJO OBSERVACION, UBICADO EN RUBIA, NIVEL MAS BAJO VALENZUELA DE IDENTIFICACION Y BARANDAS ELEVADAS POR PRECAUCION.
--- NOTE | 2022-04-26 11:25 | NUR ---
SE REALIZA INSERCION DE ИРИНА PINONS ESTERTAMRA.
[2022-05-01] MEDS ORDERED: MEMANTINE HCL5 MG (10:50)
[2022-05-01] MEDS ORDERED: ATORVASTATIN CA80 MG (10:50)
[2022-05-01] MEDS ORDERED: DAFLONEX-XL 11300 MG (10:50)
[2022-05-01] MEDS ORDERED: FAMOTIDINE20 MG (10:50)
[2022-05-01] MEDS ORDERED: NORVASC2.5 MG (10:50)
[2022-05-01] MEDS ORDERED: CANDESARTAN-HC1 EAC2 (10:50)
[2022-05-01] MEDS ORDERED: CILOSTAZOL50 MG (10:50)
[2022-05-01] MEDS ORDERED: GALANTAMINE HBR8 MG (10:50)
[2022-05-01] MEDS ORDERED: TOLTERODINE TART4 MG (10:50)
[2022-05-01] MEDS ORDERED: DONEPEZIL HCL5 MG (10:50)
== END 2022-05-16 19:29 | disposition expired | DRG 682 ==
LOC: ER 14:17 → SEC-K 04-26 12:17 → MEDJ 04-26 12:17
PROVIDERS: ADMIT Specialist; ATTEND Specialist
PROC: B24BYZZ Ultrasonography of Heart with Aorta using Other Contrast (ICD-10-PCS; 2022-04-30)
PROC: 3E0336Z Introduction of Nutritional Substance into Peripheral Vein, Percutaneous Approach (ICD-10-PCS; 2022-05-01)
PROC: 8E0ZXY6 Isolation (ICD-10-PCS; 2022-05-03)
PROC: 0DH63UZ Insertion of Feeding Device into Stomach, Percutaneous Approach (ICD-10-PCS; principal; 2022-05-04)
PROC: BW24ZZZ Computerized Tomography (CT Scan) of Chest and Abdomen (ICD-10-PCS; 2022-05-07)
PROC: BW2110Z Computerized Tomography (CT Scan) of Abdomen and Pelvis using Low Osmolar Contrast, Unenhanced and Enhanced (ICD-10-PCS; 2022-05-10)
PROC: CF2YYZZ Tomographic (Tomo) Nuclear Medicine Imaging of Hepatobiliary System and Pancreas using Other Radionuclide (ICD-10-PCS; 2022-05-11)
DX: N17.9 Acute kidney failure, unspecified (principal); A41.02 Sepsis due to Methicillin resistant Staphylococcus aureus; J69.0 Pneumonitis due to inhalation of food and vomit; B37.1 Pulmonary candidiasis; E46 Unspecified protein-calorie malnutrition; F02.818 Dementia in other diseases classified elsewhere, unspecified severity, with other behavioral disturbance; F05 Delirium due to known physiological condition; B37.49 Other urogenital candidiasis; B95.62 Methicillin resistant Staphylococcus aureus infection as the cause of diseases classified elsewhere; B96.1 Klebsiella pneumoniae [K. pneumoniae] as the cause of diseases classified elsewhere; E86.0 Dehydration; G30.9 Alzheimer's disease, unspecified; K52.9 Noninfective gastroenteritis and colitis, unspecified; D72.829 Elevated white blood cell count, unspecified; I12.9 Hypertensive chronic kidney disease with stage 1 through stage 4 chronic kidney disease, or unspecified chronic kidney disease; N18.32 Chronic kidney disease, stage 3b; I25.10 Atherosclerotic heart disease of native coronary artery without angina pectoris; E78.5 Hyperlipidemia, unspecified; R13.19 Other dysphagia; R63.39 Other feeding difficulties; F55.2 Abuse of laxatives; Z68.24 Body mass index [BMI] 24.0-24.9, adult; Z78.1 Physical restraint status; Z85.46 Personal history of malignant neoplasm of prostate